=== PATIENT | female | born 1945 | race Caucasian/White ===

== ENCOUNTER → 2019-06-02 | Outpatient (CLI) | payer OTHER ==
--- NOTE | 2019-06-02 17:02 | EXE ---
[facility] [place] [address] STRESS ECHOCARDIOGRAM Name: DENIS MICHAEL Room #: REG YANICK Voar#: [id number] ������������� Admission: 06/02/19 ������������� Attend Phys: Claus Mondragoncuso, Discharge: ��� ������������� ��� Date of : 45 �������������������� �� Report #: [id number] �������� ��������������������������������������������[id number] THIS REPORT FOR: //name// APPROVED REPORT Study performed: 06/02/2019 11:08:41 Exam: Stress Echocardiogram Indication: Chest pain Patient Location: Out-Patient Stress Nurse: Lurdes Clarke RN Status: routine Ht: 5 ft 6 in HR: 63 bpm BP: 160/82 mmHg Rhythm: NSR Medical History Allergies: No known drug allergies Cardiac Risk Factors: HTN, Hyperlipidemia Procedure The patient underwent an Exercise Stress Test using the Akash Protocol. Blood pressure, heart rate, and EKG were monitored. An Echocardiogram was performed by water supply technician in four stages in quad fashion. At peak stress, four selected images were obtained and placed side by side with resting images for comparison. Stress Test Details Stress Test: Exercise stress testing was performed using a Akash protocol. HR Resting HR: 63 bpm Max Heart Rate (APMHR): 146 bpm Max HR Achieved: 133 bpm Target HR (85% APMHR): 124 bpm % of APMHR: 91 Recovery HR: 87 bpm HR response to stress: Normal HR response to stress BP Resting BP: 160/82 mmHg Max BP: 190/88 mmHg Recovery BP: 152/82 mmHg BP response to stress: Normal blood pressure response to stress. ECG [address] [place] [address] STRESS ECHOCARDIOGRAM Name: DENIS MICHAEL Room #: REG [facility]#: [id number] ������������� Admission: 06/02/19 ������������� Attend Phys: Claus Loza, Discharge: ��� ������������� ��� Date of : 45 �������������������� �� Report #: [id number] �������� ��������������������������������������������[id number] Clinical Reason for Termination: Maximal effort Stress Symptoms: Claudication, short of breath. Exercise duration: 6 min 33 sec Highest Stage Achieved: Stage 3: 3.4 mph at 14% grade. Exercise capacity: 8.5 METs Pre-Stress Echo The resting Echocardiogram showed normal left ventricular contractility with an estimated Ejection Fraction of about 55-60%. The resting echocardiogram demonstrated normal wall motion in all wall segments. Post-Stress Echo The stress Echocardiogram showed abnormal left ventricular contractility with an estimated Ejection Fraction of about 60-65%. Conclusion Clinical Response: Non-ischemic Exercise Capacity: Average Stress ECG Response: Non-ischemic Stress Echo Images: Non-ischemic Other Information Study Quality: Adequate ��������������������������������������������� <ELECTRONICALLY SIGNED> ���������������������������������������� By: Claus Loza MD, [facility] ��������������������������������������������� 06/02/19 170 00 1701 Claus Loza MD, FACC /INF
== END ==
LOC: ULTRA 09:43
DX: I73.9 Peripheral vascular disease, unspecified (principal); I25.10 Atherosclerotic heart disease of native coronary artery without angina pectoris; I87.2 Venous insufficiency (chronic) (peripheral); I10 Essential (primary) hypertension; I25.2 Old myocardial infarction

== ENCOUNTER → 2020-02-20 | Outpatient (CLI) | payer OTHER | LOC: SJCVC 11:14 | PROVIDERS: ATTEND Internal Medicine Cardiovascular Disease | DX: R94.31 Abnormal electrocardiogram [ECG] [EKG] (principal); I25.10 Atherosclerotic heart disease of native coronary artery without angina pectoris; I12.9 Hypertensive chronic kidney disease with stage 1 through stage 4 chronic kidney disease, or unspecified chronic kidney disease; N18.3 Chronic kidney disease, stage 3 (moderate); I65.23 Occlusion and stenosis of bilateral carotid arteries; E78.00 Pure hypercholesterolemia, unspecified; I87.2 Venous insufficiency (chronic) (peripheral); E03.9 Hypothyroidism, unspecified; M85.80 Other specified disorders of bone density and structure, unspecified site; M81.0 Age-related osteoporosis without current pathological fracture; Z79.899 Other long term (current) drug therapy; Z82.49 Family history of ischemic heart disease and other diseases of the circulatory system; Z87.891 Personal history of nicotine dependence ==

== ENCOUNTER → 2020-10-24 | Outpatient (CLI) | payer OTHER | LOC: CAT 12:53 | PROVIDERS: ATTEND Internal Medicine Cardiovascular Disease | DX: Z13.6 Encounter for screening for cardiovascular disorders (principal); I25.10 Atherosclerotic heart disease of native coronary artery without angina pectoris; E78.00 Pure hypercholesterolemia, unspecified ==

== ENCOUNTER → 2020-10-24 | Outpatient (CLI) | payer OTHER | LOC: SJCVC 11:44 | PROVIDERS: ATTEND Internal Medicine Cardiovascular Disease | DX: I25.10 Atherosclerotic heart disease of native coronary artery without angina pectoris (principal); I12.9 Hypertensive chronic kidney disease with stage 1 through stage 4 chronic kidney disease, or unspecified chronic kidney disease; N18.30 Chronic kidney disease, stage 3 unspecified; E78.00 Pure hypercholesterolemia, unspecified; I65.23 Occlusion and stenosis of bilateral carotid arteries; I25.2 Old myocardial infarction; E78.5 Hyperlipidemia, unspecified; E03.9 Hypothyroidism, unspecified; M81.0 Age-related osteoporosis without current pathological fracture; F90.9 Attention-deficit hyperactivity disorder, unspecified type; F64.9 Gender identity disorder, unspecified; F32.9 Major depressive disorder, single episode, unspecified; Z87.11 Personal history of peptic ulcer disease; Z87.440 Personal history of urinary (tract) infections; Z79.899 Other long term (current) drug therapy; Z87.891 Personal history of nicotine dependence; Z72.89 Other problems related to lifestyle ==

== ENCOUNTER → 2020-12-09 | Outpatient (CLI) | payer OTHER | LOC: SJCVCIMAG 08:39 | PROVIDERS: ATTEND Internal Medicine Cardiovascular Disease | DX: I34.0 Nonrheumatic mitral (valve) insufficiency (principal); I25.10 Atherosclerotic heart disease of native coronary artery without angina pectoris; E78.5 Hyperlipidemia, unspecified; I10 Essential (primary) hypertension; R06.00 Dyspnea, unspecified; R53.83 Other fatigue ==

== ENCOUNTER 2021-10-24 09:40 | Inpatient (IN) | payer OTHER ==
[~2021-10-24] VITALS: Ht 162.6 cm; Wt 61.2 kg
[2021-10-24 09:41] VITALS: BP 129/63
[2021-10-24] MEDS ORDERED: ATORVASTATIN CA20 MG PO (09:47)
[2021-10-24] MEDS ORDERED: ALENDRONATE SOD70 MG PO (09:47)
[2021-10-24] MEDS ORDERED: PROTONIX40 M2 PO (09:47)
[2021-10-24] MEDS ORDERED: VYVANSE70 MG PO (09:48)
[2021-10-24] MEDS ORDERED: DESYREL150 MG PO (09:48)
[2021-10-24 10:06] LABS: ABSOLUTE NEUTROPHILS 5.9 thou/uL (1.4-8.2); BASOPHILS 1.7 % (0.0-2.0); EOSINOPHILS 2.8 % (0.0-3.0); HEMATOCRIT 30.8 % (37.0-47.0); HEMOGLOBIN 9.8 gm/dL (12.0-15.0); LYMPHOCYTES 17.4 % (24.0-44.0); MCH 25.6 pg (26.0-34.0); MCHC 31.7 g/dL (28.0-37.0); MCV 80.7 fL (80.0-100.0); MONOCYTES 7.7 % (1.0-8.0); PLATELET COUNT 369 thou/uL (150-400); POLYS 70.4 % (36.0-66.0); RBC 3.81 mil/uL (4.20-5.00); RDW 16.1 % (10.5-14.5); WBC 8.4 thou/uL (4.0-11.0)
[2021-10-24 10:19] LABS: CREATININE 0.9 mg/dL (0.6-1.0)
[2021-10-24 10:29] LABS: ALBUMIN 3.2 g/dL (3.4-5.0); TOTAL BILIRUBIN 0.6 mg/dL (0.2-1.0); TOTAL PROTEIN 6.5 g/dL (6.4-8.2)
[2021-10-24] MEDS ORDERED: CLOPIDOGREL75 MG PO (11:04)
[2021-10-24] MEDS ORDERED: DESVENLAFAXINE50 MG PO (11:04)
[2021-10-24] MEDS ORDERED: LEVO-T50 MCG PO (11:05)
[2021-10-24] MEDS ORDERED: KAPSPARGO SPRIN25 MG PO (11:06)
[2021-10-24 13:45] LABS: % SATURATION 5 % (20-39); IRON 23 ug/dL (50-170); TIBC 454 ug/dL (250-450)
--- NOTE | 2021-10-24 15:33 | EKG ---
[place] [address] [facility] [place] [address] ELECTROCARDIOGRAM REPORT Name: DENIS MICHAEL Room #: 170-6 ADM IN M.R.#: [id number] Admission: 10/24/21 Attend Phys: Babak Lynne MD Discharge: Date of : 45 Report #: [id number] [facility] ED Test Date: 2021-10-24 Test Time: 09:45:25 Pat Name: DENIS MICHAEL Department: Room: 170 Gender: F Shark Biologist: carlene : 1945 Requested By: Nataliia Forbes Order Number: [id number] MD: Viral Elizondo Measurements Intervals [place] Rate: 138 P: DC: QRS: 24 QRSD: 86 T: 143 QT: 292 QTc: 443 Interpretive Statements Atrial fibrillation Repolarization abnormality, prob rate related Baseline wander in lead(s) I,II,aVR Compared to ECG 04/15/2005 08:48:18 Early repolarization now present Sinus rhythm no longer present Electronically Signed On 10-24-2021 15:33:44 DIRECTOR OF ORTHOPEDICS by Viral Elizondo [email or web address] <ELECTRONICALLY SIGNED> By: Viral Elizondo MD, [facility] 10/24/21 1533 Viral Elizondo MD, FAC /EPI
[2021-10-24 18:34] VITALS: BP 102/72
[2021-10-24 20:37] VITALS: BP 116/39
--- NOTE | 2021-10-25 00:45 | NUR ---
NURSING NOTE: PT ARRIVED TO UNIT AT 1830 TODAY. MOVES ALL EXTREMITIES AND FOLLOWS COMMANDS. GAIT STEADY. PT WAS ON CARD GTT IN ED/WAS PUT ON HOLD PRIOR TO COMING TO UNIT WITH ORDERS TO RESTART IF HR SUSTAINED AT 120BPM OR GREATER. AT 0030, PT SUSTAINED A HR ON 120-125 BPM FOR OVER 20 MINUTES. CARDIZEM RESUMED PER ORDERS AT THAT TIME. PT SYMPTOMATIC AT THAT TIME WITH C/O SOA. AFTER 20 MIN, PT'S CURRENT HR 113 BPM AND PT STATES FEELS LIKE SHE IS BREATHING EASIER. CURRENTLY RESTING WITH EYES CLOSED; ALL VS AND ASSESSMENTS CHARTED, WILL CONTINUE TO MONITOR.
--- NOTE | 2021-10-25 03:00 | NUR ---
NURSE NOTE: PT'S HEART RATE DOWN TO 100'S TO 110'S UNTIL 0220 . HR SUSTAINED IN THE 120'S FOR 30 MIN. INCREASED CARDIZEM GTT TO 10MG/HR. AT 0250 THIS MORNING. CURRENT HR BETWEEM 94-100 BPM. PT STATED THAT THEIR BREATHING SEEMS BETTER. DENIES CHEST PAIN. CURRENTLY RESTING IN BED. RESP EVEN AND NON LABORED. ALL VS AND ASSESSMENTS CHARTED. WILL CONTINUE TO MONITOR.
[2021-10-25 03:36] LABS: HEMATOCRIT 29.7 % (37.0-47.0); HEMOGLOBIN 9.2 gm/dL (12.0-15.0); MCH 24.8 pg (26.0-34.0); RBC 3.71 mil/uL (4.20-5.00); RDW 16.1 % (10.5-14.5); WBC 8.5 thou/uL (4.0-11.0)
--- NOTE | 2021-10-25 04:06 | NUR ---
NURSING NOTE: PT C/O SOB AT APPROX 0345. DENIES CP. PUT ON 02 @ 2L PER NC . PT RESTING WITH EYES CLOSED; RESP EVEN AND NON LABORED. ALL VS AND ASSESSMENTS CHARTED. WILL CONTINUE TO MONITOR.
[2021-10-25 04:45] VITALS: BP 118/76
[2021-10-25 05:50] LABS: CALCIUM 8.3 mg/dL (8.5-10.1); CREATININE 1.2 mg/dL (0.6-1.0); POTASSIUM 3.4 mmol/L (3.5-5.1)
[2021-10-25 07:00] VITALS: BP 112/71
[2021-10-25 11:00] VITALS: BP 71/59
--- NOTE | 2021-10-25 11:28 | EKG ---
[place] [address] [facility] [place] [address] ELECTROCARDIOGRAM REPORT Name: DENIS MICHAEL Room #: 201- ADM IN M.R.#: [id number] Admission: 10/24/21 Attend Phys: Babak Lynne MD Discharge: Date of : 45 Report #: [id number] [facility] Test Date: 2021-10-25 Test Time: 07:51:21 Pat Name: DENIS MICHAEL Department: Room: 201 Gender: F Lead Painter: JESSI : 1945 Requested By: Mark Weldon Order Number: [id number] MD: Mark Weldon Measurements Intervals [place] Rate: 85 P: DC: QRS: 59 QRSD: 80 T: QT: 513 QTc: 611 Interpretive Statements Atrial fibrillation Nonspecific T abnrm Prolonged QT interval Compared to ECG 10/24/2021 09:45:25 Heart rate has slowed Electronically Signed On 10-25-2021 11:28:16 SAP BI ARCHITECT by Mark Weldon [email or web address] <ELECTRONICALLY SIGNED> By: Mark Weldon MD, [facility] 10/25/21 1128 0751 0751 Mark Weldon MD, FACC /EPI
--- NOTE | 2021-10-25 12:48 | NUR ---
ASSUMED CARE OF PATIENT AT 0938. PATIENT ALERT ONLY TO SELF, COMBATIVE WITH MOVE AND DIFFICULT TO UNDERSTAND VERBALLY. VITAL SIGNS OBTAINED, ADMISSION COMPLETED TO THE BEST OF ABLITIY, POOR HISTORIAN. C/O PAIN TO RIGHT FOOT PAIN. NECROTIC RIGHT GREAT TOE, NAIL HAS RECENTLY BEEN REMOVED PER FACILITY. PATIENT HAS ATTEMPTED TO PULL [place] OUT THIS MORNING AND NEEDS CONSTANT REDIRECTION. PATIENT TO BE MOVED CLOSEER TO THE NURSES DESK. TM
[2021-10-25 13:54] VITALS: BP 108/69
[2021-10-25 15:00] VITALS: BP 109/56
--- NOTE | 2021-10-25 16:10 | NUR ---
ASSUMED CARE OF PATIENT AT 0700. PATIENT A&OX4, ON RA, AFIB ON TELE. CARDIZEM GTT TAKEN OFF WHILE PATIENT HAD LOW BP AND HR WAS IN THE 70'S. DAY HAS PROGRESSED PATIENTS HR HAS INCREASED INTO THE 80'S TO LOW 100'S. PATIENT GAVE HERSELF A BED BATH WITH DAUGHTERS' HELP. PLAN FOR CARDIOCONVERSION ON WEDNESDAY. CONSENT SIGNED. ECHO AND EKG COMPLETED AND XANAX ORDERED FOR ANXIETY AND CHEST PRESSURE. PATIENT STATES THE XANAX HELPED WITH CHEST PRESSURE AND ANXIETY. PATIENT PROGRESSING TOWARD POC. .
[2021-10-25 19:12] VITALS: BP 142/94
--- NOTE | 2021-10-25 20:02 | NUR ---
NURSING NOTE; PT ALERT AND ORIENTED X4, MOVES ALL EXTREMITIES AND FOLLOWS COMMANDS. DENIES PAIN AT THIS TIME. ALL VS AND ASSESSMENTS CHARTED. CURRENTLY VISITING WITH DAUGHTER AT BEDSIDE. DENIES NEEDS. WILL CONTINUE TO MONITOR.
[2021-10-26 03:14] VITALS: BP 119/70
--- NOTE | 2021-10-26 03:49 | NUR ---
NURSING NOTE: PT ALERT AND ORIENTED X4; MOVES ALL EXTREMITIES AND FOLLOWS COMMANDS. AT APPROXIMATELY 2200, PT PUT INSURANCE CLAIM AUDITOR LIGHT MULTIPLE TIMES, EACH TIME C/O INABILITY TO SLEEP, ANXIOUS, BUT NO C/O PAIN. XANAX AND TRAZADONE GIVEN ORDERED. PT'S HR @ APPROXIMATELY 2200, SUSTAINED IN THE 120'S FOR 30 MIN AND CARDIZEM GTT RESUMED AT 10 MG/HR. PT CURRENTLY RESTING WITH EYES CLOSED, RESP EVEN AND NON LABORED. ALL VS AND ASSESSMENTS CHARTED. HR = 116 AT THIS TIME. CARDIZEM TITRATED TO 15MG PER HOUR. WILL CONTINUE TO MONITOR.
[2021-10-26 04:03] LABS: HEMATOCRIT 28.6 % (37.0-47.0); MCH 25.2 pg (26.0-34.0); MCHC 31.6 g/dL (28.0-37.0); MCV 79.8 fL (80.0-100.0); RBC 3.58 mil/uL (4.20-5.00); RDW 16.1 % (10.5-14.5); WBC 9.3 thou/uL (4.0-11.0)
[2021-10-26 05:41] LABS: CALCIUM 8.6 mg/dL (8.5-10.1); CREATININE 1.1 mg/dL (0.6-1.0); POTASSIUM 4.2 mmol/L (3.5-5.1)
[2021-10-26 08:56] VITALS: BP 125/75
--- NOTE | 2021-10-26 10:52 | 2DMMODE ---
[facility] [address] [place] [address] 2 D/M-MODE ECHOCARDIOGRAM Name: DENIS MICHAEL Room #: 201-P ADM IN M.R.#: [id number] Admission: 10/24/21 Attend Phys: Babak Lynne MD Discharge: Date of : 45 Report #: [id number] THIS REPORT FOR: cc: Juvencio Sultana MD, Steven A. MD Lundgren,Mark Downs MD [facility] ~ APPROVED REPORT Study performed: 10/25/2021 12:33:20 EXAM: Comprehensive 2D, Doppler, and color-flow Echocardiogram Patient Location: In-Patient Room #: 201 Status: routine BSA: 1.67 HR: 70 bpm BP: 112/71 mmHg Rhythm: Atrial Fibrillation Other Information Study Quality: Good Risk Factors: Cardiac Risk Factors: HTN Indications Mitral Valve Disease Dyspnea CAD Chest Pain Hypertension/HDD 2D Dimensions IVSd: 8.43 (7-11mm) LVOT Diam: 17.42 (18-24mm) LVDd: 40.15 mm PWd: 11.42 (7-11mm) Ascending Ao: 29.86 (22-36mm) LVDs: 33.78 (25-40mm) Left Atrium: 45.45 (27-40mm) Aortic Root: 28.98 mm LV Single Plane 4CH: 32.82 % LV Single Plane 2CH: 37.43 % Volumes Left Atrial Volume (Systole) [facility] [address] [place] [address] 2 D/M-MODE ECHOCARDIOGRAM Name: DENIS MICHAEL Room #: 201-P ADM IN M.R.#: [id number] Admission: 10/24/21 Attend Phys: Babak Lynne MD Discharge: Date of : 45 Report #: [id number] Single Plane 4CH: 72.17 mL Single Plane 2CH: 118.98 mL Biplane LA Volume: 99.00 mL LA ESV Index: 59.00 mL/m2 Aortic Valve AoV Peak Reynaldo.: 1.10 m/s AO Peak Gr.: 5.61 mmHg LVOT Max P.97 mmHg LVOT Max V: 0.70 m/s KADIE Vmax: 1.52 cm2 Mitral Valve ERO: 100.62 mm2 MV Max Reynaldo.: 3.14 m/s MR Radius: 0.73 cm MR Als. Reynaldo: 0.95 m/s MR Flow: 316.40 mL/s Pulmonary Valve PV Peak Reynaldo.: 0.51 m/s PV Peak Gr.: 1.07 mmHg WA End Vmax: 1.35 m/s Tricuspid Valve TR Peak Reynaldo.: 2.84 m/s RAP Estimate: 10.00 mmHg TR Peak Gr.: 32.23 mmHg RVSP: 42.00 mmHg Left Ventricle The left ventricle is normal size. There is normal left ventricular wall thickness. Left ventricular systolic function is moderately decreased. LVEF 35%. This study is not technically sufficient to allow evaluation of the LV diastolic function due to atrial fibrillation. Right Ventricle The right ventricle is normal size. The right ventricular systolic function is normal. Atria Left atrium is dilated. Right atrium is dilated. Aortic Valve Aortic valve is trileaflet, mildly sclerotic. No aortic regurgitation is present. There is no aortic valvular stenosis. Mitral Valve Mitral annular calcification Severe mitral regurgitation. No evidence of mitral valve stenosis. [facility] [address] [place] [address] 2 D/M-MODE ECHOCARDIOGRAM Name: DENIS MICHAEL Room #: 201-P [facility] IN .R.#: [id number] Admission: 10/24/21 Attend Phys: Babak Lynne MD Discharge: Date of : 45 Report #: [id number] Tricuspid Valve The tricuspid valve is normal in structure. Severe tricuspid regurgitation. Pulmonary artery pressur of 40 mmHg Pulmonic Valve The pulmonary valve is normal in structure. Mild pulmonic regurgitation. Great Vessels The aortic root is normal in size. IVC is dilated and collapses <50% with inspiration. Pericardium There is no pericardial effusion. There is no pleural effusion. <Conclusion> Left ventricular systolic function is moderately decreased. LVEF 35%. Both atria are dilated. Aortic valve is trileaflet, mildly sclerotic. No aortic regurgitation or stenosis Mitral annular calcification. Severe mitral regurgitation. Severe tricuspid regurgitation. Pulmonary artery pressur of 40 mmHg No pericardial effusion. <ELECTRONICALLY SIGNED> By: Mark Weldon MD, [facility] 10/26/211051 51 51 Mark Weldon MD, [facility] /INF
--- NOTE | 2021-10-26 11:01 | EKG ---
[place] [address] [facility] [place] [address] ELECTROCARDIOGRAM REPORT Name: DENIS MICHAEL Room #: 201- ADM IN M.R.#: [id number] Admission: 10/24/21 Attend Phys: Babak Lynne MD Discharge: Date of : 45 Report #: [id number] [facility] Test Date: 2021-10-25 Test Time: 13:18:53 Pat Name: DENIS MICHAEL Department: Room: 201 Gender: F Athletic Equipment Custodian: JESSI : 1945 Requested By: Mark Weldon Order Number: [id number] MD: Mark Weldon Measurements Intervals [place] Rate: 74 P: CO: QRS: 52 QRSD: 86 T: 61 QT: 482 QTc: 535 Interpretive Statements Atrial fibrillation Nonspecific ST and T wave abnormality Prolonged QT interval Compared to ECG 10/25/2021 07:51:21 No significant changes Electronically Signed On 10-26-2021 11:01:[address] TRAFFIC CONTROL TECHNICIAN by Mark Weldon [email or web address] <ELECTRONICALLY SIGNED> By: Mark Weldon MD, [facility] 10/26/21 1101 1318 1318 Mark Weldon MD, FACC /EPI
[2021-10-26 12:17] VITALS: BP 107/47
[2021-10-26 16:02] VITALS: BP 106/52
[2021-10-26 20:15] VITALS: BP 142/105
--- NOTE | 2021-10-26 20:18 | NUR ---
Pt has been A&0x4, VS stable and afebrile. Daughter at bedside throughout shift. Pt had some complaints of a stuffy nose and requested differnt anti-anxiety medication; meds were ordered. Pt HR has been controlled without use of cardizem drip throughout shift and HR was in 70-80s until 1800 when HR went into 110s. Plan is for cardioversion 10/26/21. No current concerns. Continue to monitor.
[2021-10-26 23:00] VITALS: BP 137/87
--- NOTE | 2021-10-27 02:58 | NUR ---
PT ALERT AND ORIENTED X4, MOVES ALL EXTREMITIES AND FOLLOWS COMMANDS. PT C/O ANXIETY AT START OF SHIFT. RECEIVED ATIVAN PRN ORDERED AND HAD SCHEDULED TRAZADONE AT HS ORDERED. WOKE UP X1 AT 2230, SAT UP IN CHAIR APPROXIMATELY 30 MIN, GOT BACK IN BED AND HAS BEEN RESTING WITH EYES CLOSED SINCE. DENIES PAIN. UP WITH SBA X1 TO BR. ALL VS AND ASSESSMENTS CHARTED. CURRENT HEART RATE 92 BPM. WILL CONTINUE TO MONITOR.
[2021-10-27 03:58] VITALS: BP 143/92
[2021-10-27 04:33] LABS: HEMATOCRIT 29.6 % (37.0-47.0); HEMOGLOBIN 9.3 gm/dL (12.0-15.0); MCHC 31.5 g/dL (28.0-37.0); MCV 79.3 fL (80.0-100.0); RBC 3.73 mil/uL (4.20-5.00); RDW 16.3 % (10.5-14.5); WBC 8.7 thou/uL (4.0-11.0)
[2021-10-27 04:51] LABS: CALCIUM 9.1 mg/dL (8.5-10.1); CREATININE 1.1 mg/dL (0.6-1.0); POTASSIUM 4.4 mmol/L (3.5-5.1)
[2021-10-27 09:30] VITALS: BP 121/65
[2021-10-27 11:30] VITALS: BP 137/73
--- NOTE | 2021-10-27 12:24 | EKG ---
[place] [address] [facility] [place] [address] ELECTROCARDIOGRAM REPORT Name: DENIS MICHAEL Room #: 201-P ADM IN M.R.#: [id number] Admission: 10/24/21 Attend Phys: Babak Lynne MD Discharge: Date of : 45 Report #: [id number] [facility] Test Date: 2021-10-27 Test Time: 11:43:55 Pat Name: DENIS MICHAEL Department: Room: 201 Gender: F Community Health Program Coordinator: : 1945 Requested By: Mark Weldon Order Number: [id number] MD: Berny Brown Measurements Intervals [place] Rate: 66 P: 52 WI: 157 QRS: 61 QRSD: 86 T: 77 QT: 501 QTc: 525 Interpretive Statements Sinus rhythm Nonspecific ST-T wave change Compared to ECG 10/25/2021 13:18:53 T-wave abnormality now present Atrial fibrillation no longer present Electronically Signed On 10-27-2021 12:24:31 INDUSTRIAL MAINTENANCE INSTRUCTOR by Berny Brown [email or web address] <ELECTRONICALLY SIGNED> By: Berny Brown MD 10/27/21 1224 1143 1143 Berny Brown MD /EPI
--- NOTE | 2021-10-27 12:32 | NUR ---
PATIENT ADMITTED FOR AFIB WITH RVR AND CHF. CHART REVIEWED AND DISCUSSED WITH CARE TEAM. CM MET WITH PT AND PTS DAUGHTER JERRY AT BEDSIDE THIS DAY. CM ROLE INTRODUCED. PT LYING IN BED WITH EYES CLOSED. PT REMOVED BLANKETS OF BED. CM ASSIST AND ASKED IF SHE WAS HOT. SHE REPLIED OPENING HER EYES AND SHAKING HER HEAD YES. DAUGHTER REPORTS SHE IS ALWAYS HOT. DAUGHTER REPORTS PT LIVES AT HOME BY HERSELF. DAUGHTER REPORTS SHE DOES USE AN ASST DEVICE AND INDEP WITH ADLS AND MOBILITY PSYCHOLOGIST SOCIAL. STILL DRIVING. DOES NOT USE HOME OXYGEN. DAUGHTER REPORTS PT DOES HAVE 13 STAIRS IN THE HOME HOWEVER DOES NOT USE THEM. PT LIVES ON MAIN FLOOR AND SLEEP ON THE COUCH. DAUGHTER DENIES HH/SNF/REHAB IN THE PAST HOWEVER DURING CONVERSATION MENTIONED HH. DAUGHTER DOES NOT REMEMBER WHAT HH. PT PCP IS DR YEE. PRIMARY CONTACT IS DAUGHTER JERRY WHO LIVES OUT OF TOWN [phone] AND ANOTHER DAUGHTER MARTINA [phone]. JERRY INDICATED HER AND HER SISTER WERE TRYING TO ARRANGE FOR SOMEONE TO STAY WITH PT AROUND THE CLOCK. DAUGHTER REPORTS PT GOAL IS TO RETURN HOME ONCE MEDICALLY STABLE TO DC. CM AWAITING THERAPY RECOMMENDATIONS FOR DC PLANNING. CM FOLLOWING.
[2021-10-27 15:20] VITALS: BP 120/61
--- NOTE | 2021-10-27 20:04 | NUR ---
Pt went for cardioversion at 0730am to correct AFIB. When pt eturned to unit VS were stable; pt was on 2L O2 for comfort. Around noon pt was difficult to rouse, desaturating and extremities were cold; oral temp was 94.4. Rapid reponse was called; pt was given 0.4ml of narcan to reverse effects of sedatives given during cardioversion; Dagoberto fonseca was in plave; rectal temp was 98.1; pt was placed on 02 mask and sats calin to >95% Pt was monitored Q15 minutes and within an hour O2 sats were >95% on room air; pt was alert and orient and ate lunch. Daughter was at bedside and was worried that pt had fallen asleep after lunch and was still asleep at 1600; Pt was assessed and she was A&0x4, VS all stable and pt was able to follow commands and move all extremities. Hospitalist was informed and he said to let pt sleep and try to get her up for dinner and then reassess. At dinner pt was fully awake. At 1950 kevin stated that she feels pt should be more awake than she currently is; Pt was assessed and all VS were stable; pt is drowsey and falls asleep in the middle of answering questions. LINEMARKER informed and one dose of narcan was given. Continue to monitor.
[2021-10-27 20:15] VITALS: BP 111/64
--- NOTE | 2021-10-27 20:41 | NUR ---
Narcan ordered but not given. Went in to administer at 1999 but pt was awake. Daughter stated that "she would fall back asleep soon". I went back in at 2014 and pt was sitting in bed brushing her hair. Narcan was returned to [facility]. Continue to monitor.
[2021-10-28 04:08] LABS: HEMOGLOBIN 8.5 gm/dL (12.0-15.0); MCH 24.9 pg (26.0-34.0); MCHC 31.5 g/dL (28.0-37.0); RBC 3.42 mil/uL (4.20-5.00); RDW 16.5 % (10.5-14.5)
[2021-10-28 04:45] VITALS: BP 114/56
[2021-10-28 04:47] LABS: CALCIUM 8.9 mg/dL (8.5-10.1); CREATININE 1.3 mg/dL (0.6-1.0); POTASSIUM 3.5 mmol/L (3.5-5.1)
[2021-10-28 07:00] VITALS: BP 119/71
--- NOTE | 2021-10-28 08:08 | NUR ---
family concerned with patients lethargy post cardiversion requsted she not recieve and lorazepam this evening, pt awake and alert hs meds given with iv lasix pt used call light appropriatly for sba to bsc several times thru the noc, daughter returned at 0300 to check on pt, pt stated she had no concerns at this time, no c/o pain, vss, sr post cardioversion, remains on 2 l/nc thru the noc, daughter back at bedside this am, report given to next shift to con't ppoc
--- NOTE | 2021-10-28 08:21 | EKG ---
[place] [address] [facility] [place] [address] ELECTROCARDIOGRAM REPORT Name: DENIS MICHAEL Room #: 201- ADM IN M.R.#: [id number] Admission: 10/24/21 Attend Phys: Babak Lynne MD Discharge: Date of : 45 Report #: [id number] [facility] Test Date: 2021-10-28 Test Time: 07:58:10 Pat Name: DENIS MICHAEL Department: Room: 201 Gender: F Agricultural Equipment Design Engineer: : 1945 Requested By: Mark Weldon Order Number: [id number] MD: Mark Weldon Measurements Intervals [place] Rate: 57 P: 56 [place]: 159 QRS: 60 QRSD: 88 T: 86 QT: 624 QTc: 608 Interpretive Statements Sinus bradycardia Abnormal T, probable ischemia, anterior leads Prolonged QT interval Compared to ECG 10/27/2021 11:43:55 T-wave abnormality more pronounced Prolonged QT interval now present Electronically Signed On 10-28-2021 8:21:21 FLORIST HELPER by Mark Weldon [email or web address] <ELECTRONICALLY SIGNED> By: Mark Weldon MD, [facility] 10/28/21820 0758 0758 Mark Weldon MD, [facility] /EPI
[2021-10-28] MEDS ORDERED: TORSEMIDE20 MG PO (10:15)
[2021-10-28] MEDS ORDERED: COZAAR 25 MG TA25 M1 PO (10:15)
[2021-10-28] MEDS ORDERED: ELIQUIS5 MG PO (10:15)
[2021-10-28] MEDS ORDERED: KLOR-CON M2020 MEQ PO (10:15)
[2021-10-28] MEDS ORDERED: PACERONE 200 M200 M1 PO (10:15)
[2021-10-28 10:56] VITALS: BP 119/54
--- NOTE | 2021-10-28 10:56 | NUR ---
CHART REVIEWED AND DISCUSSED WITH CARE TEAM. CM MET WITH PT AND DAUGHTER JERRY THIS DAY. PT AND PTS DAUGHTER CONTINUE TO REFUSE HOME HEALTH SERVICES ONCE PT MEDICALLY STABLE TO DC. PTS DAUGHTER REPORTS SHE WILL BE STAYING WITH PATIENT 05/04 AND ALTERNATING WITH HER SISTER. CM INSTRUCTED PT AND DAUGHTER SHOULD THEY CHANGE THEIR MIND PRIOR TO DC TO LET CM KNOW. OTHERWISE CAN FOLLOW UP WITH PCP THROUGH PTS PCP. NO FURTHER CM INTERVENTIONS INDICATED AT THIS TIME.
[2021-10-28 11:00] VITALS: BP 97/51
[2021-10-28 15:30] VITALS: BP 113/53
[2021-10-28 17:05] VITALS: BP 119/54
--- NOTE | 2021-10-28 17:41 | NUR ---
Pt discharged at 1730. Pt was A&0x4, VS stable and afebrile. Discharge education was provided and pt stated understanding of information and pt is aware of f/u appointment with cardiology. Cardiology signed off on discharge. No current concerns.
--- NOTE | 2021-10-30 09:08 | CATHLAB ---
[facility] [place] [address] INVASIVE PROCEDURE REPORT Name: DENIS MICHAEL Room #: 201-P [facility] IN M.R.#: [id number] Admission: 10/24/21 Attend Phys: Babak Lynne MD Discharge: 10/28/21 Date of : 45 Report #: [id number] THIS REPORT FOR: cc: Juvencio Sultana MD, Steven A. MD Lundgren,Mark Downs MD [facility] ~ PROCEDURE: Cardioversion. INDICATIONS: Atrial fibrillation. DESCRIPTION OF PROCEDURE: Procedure, potential benefits and risks of the procedure were discussed at length with the patient, who understood. Full written and informed consent was obtained. The patient was brought into the cardiac holding area where continuous monitoring was performed. A timeout was performed. She was sedated with intravenous Versed and fentanyl. A 120 biphasic synchronous joules were applied to the chest with prompt conversion of atrial fibrillation to sinus rhythm. SUMMARY: Successful cardioversion of atrial fibrillation to sinus rhythm following a single 120-joule biphasic synchronous shock. <ELECTRONICALLY SIGNED> By: Mark Weldon MD, FACC 10/30/21 0908 0901 1209 Mark Weldon MD, FACC /nt
== END 2021-10-28 17:46 | disposition home or self-care (01) | DRG 291 ==
LOC: ER 09:40 → EROBS 13:40 → 2N 13:40
PROVIDERS: Emergency Medicine; Internal Medicine; ADMIT Hospitalist; ATTEND Hospitalist
PROC: 5A2204Z Restoration of Cardiac Rhythm, Single (ICD-10-PCS; principal; 2021-10-27)
DX: I11.0 Hypertensive heart disease with heart failure (principal); I50.23 Acute on chronic systolic (congestive) heart failure; I48.20 Chronic atrial fibrillation, unspecified; D68.59 Other primary thrombophilia; G93.40 Encephalopathy, unspecified; I42.9 Cardiomyopathy, unspecified; I25.10 Atherosclerotic heart disease of native coronary artery without angina pectoris; I34.0 Nonrheumatic mitral (valve) insufficiency; Z20.822 Contact with and (suspected) exposure to COVID-19; E78.5 Hyperlipidemia, unspecified; Z79.899 Other long term (current) drug therapy; E03.9 Hypothyroidism, unspecified; D50.9 Iron deficiency anemia, unspecified; E78.00 Pure hypercholesterolemia, unspecified; Z90.49 Acquired absence of other specified parts of digestive tract; F32.A Depression, unspecified
CPT/HCPCS: 10081